=== PATIENT | female | born 1955 | race Caucasian/White ===

== ENCOUNTER 2016-07-19 10:45 | Outpatient (RCR) | payer OTHER ==
[~2016-07-19 10:45] MED LIST: CALCIUM + D 6001 TA1 PO; EVISTA 60MG60 MG/TAB PO; LEVOXYL0.125 MG PO; MAGNESIUM250 MG PO; MOTRIN 200200 MG/TAB PO; MULTIVITAMIN FO1 CAP PO; NORCO 325 MG-7.1 TAB PO; PREMARIN .3MG0.3 MG PO; TYLENOL EXTRA500 M1 PO; ULTRAM 50MG TAB50 MG PO
== END 2016-10-17 ==
LOC: WSOH
DX: S60.943D Unspecified superficial injury of left middle finger, subsequent encounter (principal)

== ENCOUNTER 2016-12-23 09:28 | Outpatient (RCR) | payer OTHER | END 2016-12-23 09:30 | LOC: WSOH 09:28 | DX: Z53.8 Procedure and treatment not carried out for other reasons (principal) ==

== ENCOUNTER → 2017-03-10 | Outpatient (CLI) | payer OTHER ==
[2017-03-10 15:04] LABS: CALCIUM 9.2 mg/dL (8.4-10.2); CREATININE, serum 0.97 mg/dL (0.52-1.25); POTASSIUM 4.3 mmol/L (3.4-5.0)
[2017-03-10 15:34] LABS: THYROID STIMULATING HORMONE 1.13 uIU/mL (0.465-4.680)
== END ==
LOC: COL.LAB 14:06
PROVIDERS: Nurse Practitioner Family
DX: Z00.00 Encounter for general adult medical examination without abnormal findings (principal); E03.4 Atrophy of thyroid (acquired); M85.80 Other specified disorders of bone density and structure, unspecified site

== ENCOUNTER → 2017-03-31 | Outpatient (REF) | LOC: WSOH 11:30 | DX: Z02.89 Encounter for other administrative examinations (principal) ==

== ENCOUNTER → 2017-05-11 | Outpatient (CLI) | payer OTHER | LOC: MC.RAD 08:00 | DX: Z12.31 Encounter for screening mammogram for malignant neoplasm of breast (principal); Z00.00 Encounter for general adult medical examination without abnormal findings; E03.4 Atrophy of thyroid (acquired); M85.80 Other specified disorders of bone density and structure, unspecified site ==

== ENCOUNTER → 2017-05-31 | Outpatient (REF) | LOC: WSOH 16:00 | DX: Z02.89 Encounter for other administrative examinations (principal) ==

== ENCOUNTER → 2017-08-01 | Outpatient (CLI) | payer OTHER | LOC: COL.LAB 15:07 | DX: L93.0 Discoid lupus erythematosus (principal) ==

== ENCOUNTER → 2017-08-17 | Outpatient (CLI) | payer OTHER | LOC: COL.LAB 11:47 | DX: E87.5 Hyperkalemia (principal) ==

== ENCOUNTER → 2018-03-09 | Outpatient (CLI) | payer OTHER | LOC: COL.LAB 14:22 | DX: Z00.00 Encounter for general adult medical examination without abnormal findings (principal); E03.9 Hypothyroidism, unspecified ==

== ENCOUNTER → 2018-07-02 | Outpatient (CLI) | payer OTHER | LOC: MC.RAD 10:33 | DX: Z12.31 Encounter for screening mammogram for malignant neoplasm of breast (principal) ==

== ENCOUNTER 2018-11-02 09:00 | Outpatient (RCR) | payer OTHER | END 2018-11-02 12:01 | disposition home or self-care (01) | LOC: WSPT 09:00 | DX: M25.512 Pain in left shoulder (principal) ==

== ENCOUNTER → 2019-03-19 | Outpatient (CLI) | payer OTHER ==
[2019-03-19 14:04] LABS: COLLECTION METHOD CLEAN CATCH
[2019-03-19 14:14] LABS: PH 6 (5-8); SQUAMOUS EPITHELIAL 0-2 /hpf; URINE APPEARANCE Clear; URINE BACTERIA Rare /hpf; URINE BILIRUBIN Negative (NEGATIVE); URINE BLOOD 2+ (NEGATIVE); URINE COLOR Amber; URINE GLUCOSE Negative (NEGATIVE); URINE KETONE Negative (NEGATIVE); URINE LEUKOCYTE ESTERASE 3+ (NEGATIVE); URINE NITRATE Positive (NEGATIVE); URINE PROTEIN(semi-quant) Negative (NEGATIVE); URINE UROBILINOGEN Negative (NEGATIVE)
== END ==
LOC: COL.LAB 13:56
PROVIDERS: Internal Medicine
DX: N39.0 Urinary tract infection, site not specified (principal)

== ENCOUNTER → 2019-07-10 | Outpatient (CLI) | payer OTHER | LOC: MC.RAD 13:12 | DX: Z12.31 Encounter for screening mammogram for malignant neoplasm of breast (principal) ==

== ENCOUNTER 2019-08-28 14:43 | Outpatient (CLI) | payer OTHER ==
[~2019-08-28] VITALS: Ht 167.6 cm; Wt 72.0 kg
[~2019-08-28 14:43] MED LIST changes: +OS-CAL 500 + D1 TAB PO
[2019-08-28 15:00] VITALS: BP 122/66; PULSE 60; TEMP 97.4
[2019-08-28] MEDS ORDERED: TYLENOL 500MG500 MG PO (15:12)
--- NOTE | 2019-08-28 16:03 | NUR ---
Pt terell reclast well. Pt discharged per ambulation.
== END 2019-08-28 16:03 | disposition home or self-care (01) ==
LOC: EUO 14:43
DX: M81.0 Age-related osteoporosis without current pathological fracture (principal)
CPT/HCPCS: J3489

== ENCOUNTER → 2020-07-14 | Outpatient (CLI) | payer MEDICARE, OTHER ==
[~2020-07-14] MED LIST changes: +TYLENOL 500MG500 MG PO
== END ==
LOC: MC.RAD 09:13
DX: Z12.31 Encounter for screening mammogram for malignant neoplasm of breast (principal); M81.0 Age-related osteoporosis without current pathological fracture

== ENCOUNTER 2020-11-11 11:00 | Outpatient (RCR) | payer MEDICARE, OTHER | END 2020-12-11 08:51 | disposition home or self-care (01) | LOC: WSPT 11:00 | DX: M25.512 Pain in left shoulder (principal) ==

== ENCOUNTER → 2021-02-05 | Outpatient (CLI) | payer MEDICARE, OTHER ==
[2021-02-05 12:19] LABS: MUCOUS Present /lpf; PH 5 (5-8); SQUAMOUS EPITHELIAL 0-2 /hpf; URINE APPEARANCE Cloudy; URINE BACTERIA Rare /hpf; URINE BILIRUBIN Negative (NEGATIVE); URINE BLOOD Negative (NEGATIVE); URINE COLOR Amber; URINE GLUCOSE Negative (NEGATIVE); URINE KETONE Negative (NEGATIVE); URINE LEUKOCYTE ESTERASE 1+ (NEGATIVE); URINE NITRATE Positive (NEGATIVE); URINE PROTEIN(semi-quant) 1+ (NEGATIVE); URINE UROBILINOGEN >=4.0 mg/dL (NEGATIVE); URINE WBC >50 /hpf
[2021-02-05 12:39] LABS: COLLECTION METHOD CLEAN CATCH
== END ==
LOC: COL.LAB 11:01
PROVIDERS: Internal Medicine
DX: N39.0 Urinary tract infection, site not specified (principal)

== ENCOUNTER → 2021-08-31 | Outpatient (CLI) | payer MEDICARE | LOC: MC.RAD 09:41 | DX: Z12.31 Encounter for screening mammogram for malignant neoplasm of breast (principal); M81.0 Age-related osteoporosis without current pathological fracture ==

== ENCOUNTER → 2021-09-24 | Outpatient (CLI) | payer MEDICARE | LOC: COL.LAB 09:31 | DX: E05.00 Thyrotoxicosis with diffuse goiter without thyrotoxic crisis or storm (principal) ==

== ENCOUNTER 2021-11-09 16:13 | Emergency (ER) | payer MEDICARE, OTHER ==
[~2021-11-09] VITALS: Ht 167.6 cm; Wt 77.3 kg
[2021-11-09 16:33] VITALS: TEMP 98.5
[2021-11-09] MEDS ORDERED: SYNTHROID0.112 MG/T PO (17:28)
[2021-11-09] MEDS ORDERED: VITAMINC1000TA (17:29)
[2021-11-09] MEDS ORDERED: NORCO 325 MG-51 TAB PO (18:58)
[2021-11-09 19:18] VITALS: BP 134/78; PULSE 76
== END 2021-11-09 19:15 | disposition home or self-care (01) ==
LOC: COL.ER 16:13
DX: S42.202A Unspecified fracture of upper end of left humerus, initial encounter for closed fracture (principal); W01.0XXA Fall on same level from slipping, tripping and stumbling without subsequent striking against object, initial encounter; Y93.01 Activity, walking, marching and hiking; Y92.480 Sidewalk as the place of occurrence of the external cause
CPT/HCPCS: J3010

== ENCOUNTER → 2021-11-16 | Outpatient (CLI) | payer MEDICARE, OTHER ==
[~2021-11-16] MED LIST changes: +NORCO 325 MG-51 TAB PO; +SYNTHROID0.112 MG/T PO; +VITAMINC1000TA
== END ==
LOC: COL.LAB 13:06
DX: E05.00 Thyrotoxicosis with diffuse goiter without thyrotoxic crisis or storm (principal)
CPT/HCPCS: J0690; J1100; J2250; J2405; J2704; J3010

== ENCOUNTER 2021-11-17 09:47 | Day surgery (SDC) | payer MEDICARE, OTHER ==
[~2021-11-17] VITALS: Ht 168.9 cm; Wt 73.2 kg
[2021-11-17 10:14] VITALS: BP 121/52; PULSE 63; TEMP 98.1
[2021-11-17 13:53] VITALS: TEMP 97.4
[2021-11-17 14:25] VITALS: BP 128/71; PULSE 97
--- NOTE | 2021-11-17 14:25 | NUR ---
Patient returns to room 3 per cart from PACU accompanied by Uyen JUÁREZ and is awake and alert. Temp 97.3 and room air sats 94%. Sling on the left arm. Dressing on the left shoulder dry and intact. IV fluids infusing. Spouse in room and talking with patient. Siderails up x2 and call light in reach. Head of cart elevated. Denies pain. Supravicular block was placed pre-operatively and continues to control discomfort. Sipping on water.
[2021-11-17 14:40] VITALS: BP 132/67; PULSE 91
--- NOTE | 2021-11-17 14:40 | NUR ---
Resting and sipping on water. Call light in reach and spouse in room.
[2021-11-17 14:55] VITALS: BP 128/53; PULSE 83
--- NOTE | 2021-11-17 14:55 | NUR ---
Resting and not disturbed.
[2021-11-17 15:10] VITALS: BP 131/61; PULSE 84
--- NOTE | 2021-11-17 15:10 | NUR ---
Continues to rest and is drinking water. More awake. Denies pain. Left hand warm to touch and sling maintained.
--- NOTE | 2021-11-17 15:23 | NUR ---
IV to INT and assisted to the bathroom. Gait steady.
--- NOTE | 2021-11-17 16:00 | NUR ---
Patient was able to eat muffin and denies nausea. Left arm maintained in sling. INT discontinued and site is slightly bruised. Dresses self with assist of spouse.
--- NOTE | 2021-11-17 16:06 | NUR ---
Dismissal instructions given and voices understanding of these. Provided follow up appointment date and time. Assisted into wheelchair.
--- NOTE | 2021-11-17 16:15 | NUR ---
Patient dismissed to home driven by spouse and taken to the front door per wheelchair and assisted into vehilce with dismissal instruction in hand.
== END 2021-11-17 16:15 | disposition home or self-care (01) ==
LOC: SDCO 09:47
DX: S42.232A 3-part fracture of surgical neck of left humerus, initial encounter for closed fracture (principal); S42.252A Displaced fracture of greater tuberosity of left humerus, initial encounter for closed fracture
CPT/HCPCS: A4619; C1713; J7120

== ENCOUNTER → 2021-12-16 | Outpatient (RCR) | payer MEDICARE, OTHER ==
[~2021-12-16] MED LIST changes: +CALCIUM 600MG+D1 TAB PO
== END | disposition home or self-care (01) ==
LOC: PT.GENESIS
DX: S42.202D Unspecified fracture of upper end of left humerus, subsequent encounter for fracture with routine healing (principal); Z98.890 Other specified postprocedural states; W19.XXXD Unspecified fall, subsequent encounter

== ENCOUNTER 2022-01-14 11:00 | Outpatient (RCR) | payer MEDICARE, OTHER ==
[~2022-01-14 11:00] MED LIST changes: -CALCIUM 600MG+D1 TAB PO
== END 2022-01-15 ==
LOC: PT.GENESIS
DX: S42.202D Unspecified fracture of upper end of left humerus, subsequent encounter for fracture with routine healing (principal); X58.XXXD Exposure to other specified factors, subsequent encounter

== ENCOUNTER 2022-01-31 14:54 | Outpatient (CLI) | payer MEDICARE, OTHER ==
[~2022-01-31] VITALS: Ht 170.2 cm; Wt 72.3 kg
[2022-01-31 15:21] VITALS: BP 130/71; PULSE 67; TEMP 98.2
[2022-01-31] MEDS ORDERED: TYLENOL 500MG500 MG PO (15:24)
[2022-01-31] MEDS ORDERED: CALCIUM 600MG+D1 TAB PO (15:24)
== END 2022-01-31 15:52 ==
LOC: EUO 14:54
DX: M81.0 Age-related osteoporosis without current pathological fracture (principal)
CPT/HCPCS: J3489

== ENCOUNTER 2022-02-11 13:00 | Outpatient (RCR) | payer MEDICARE, OTHER ==
[~2022-02-11 13:00] MED LIST changes: +CALCIUM 600MG+D1 TAB PO
== END 2022-02-15 | disposition home or self-care (01) ==
LOC: PT.GENESIS
DX: S42.202D Unspecified fracture of upper end of left humerus, subsequent encounter for fracture with routine healing (principal); Z98.890 Other specified postprocedural states; W19.XXXD Unspecified fall, subsequent encounter

== ENCOUNTER → 2022-02-23 | Outpatient (CLI) | payer MEDICARE, OTHER | LOC: COL.LAB 11:09 | DX: E05.00 Thyrotoxicosis with diffuse goiter without thyrotoxic crisis or storm (principal) ==

== ENCOUNTER 2022-03-16 10:15 | Outpatient (RCR) | payer MEDICARE, OTHER | END 2022-03-17 | disposition home or self-care (01) | LOC: PT.GENESIS | DX: S42.202D Unspecified fracture of upper end of left humerus, subsequent encounter for fracture with routine healing (principal); Z98.890 Other specified postprocedural states; X58.XXXD Exposure to other specified factors, subsequent encounter ==

== ENCOUNTER 2022-04-13 10:45 | Outpatient (RCR) | payer MEDICARE, OTHER | END 2022-04-17 | disposition home or self-care (01) | LOC: PT.GENESIS | DX: S42.202D Unspecified fracture of upper end of left humerus, subsequent encounter for fracture with routine healing (principal) ==